=== PATIENT | female | born 1950 | race Caucasian/White ===

== ENCOUNTER → 2021-02-18 10:07 | Outpatient (CLI) | payer MEDICARE, SELFPAY ==
[2021-02-18 10:35] LABS: COVID19 -Nasal RAPID Negative (Negative)
== END ==
PROVIDERS: PCP Family Medicine; Visit Provider Physician Assistant
DX: Z20.822 Contact with and (suspected) exposure to COVID-19 (principal)
CPT/HCPCS: 87635

== ENCOUNTER 2021-02-20 14:19 | Observation (INO) | payer MEDICARE, SELFPAY ==
[2021-02-12 08:34] VITALS: BMI 26.2
[2021-02-19] VITALS (23 sets, daily range): BP systolic 120–180; BP diastolic 54–104; PULSE 83–104; RESP 12–17; TEMP 36.1–36.7; O2SAT 90–99; BMI 26.2
[2021-02-19] MEDS: LACTATED RINGERS 1,000 ML 42 ML IV ×2 (09:29→11:56)
--- NOTE | 2021-02-19 09:41 | PM.PREOP ---
Pre-operative Note COVID-19 COVID-19 status: Negative Result date/Date tested (Pos, Neg/Pending): 02/17/21 Interval Note History & Physical reviewed/Exam performed by Physician: Yes Changes to H&P: No
[2021-02-19] MEDS: CEFAZOLIN 2 GM/100 ML FROZ.PIGGY IV ×2 (09:48→18:30)
--- NOTE | 2021-02-19 10:36 | SUR.OPER ---
Prone on spine table, head in foam head support, padded chest and pelvic supports, gel pad at knees, lower legs supported by pillows; nipples, genitalia and toes free of pressure, arms secured on foam padded arm boards at <90 degrees abduction. Tape over blanket at thigh secured to table.
[2021-02-19] MEDS: BUPIVACAINE LIPOSOME 266 MG/20 ML VIAL INJ (10:43)
[2021-02-19] MEDS: BUPIVACAINE 0.25% W/ EPI (PF) 10 ML VIAL 30 ML INJ (10:44)
--- NOTE | 2021-02-19 13:10 | P.OP_ITS ---
Operative Date/Time/Diagnoses Date of procedure: 02/19/21 Time of procedure: 10:10 Pre-op diagnosis: 1. L5-S1 bilateral foramen stenosis with spondylosis 2. Hx of L5-S1 laminectomy with epidural scarring 3. Severe L5-S1 degenerative disc Post-op diagnosis: same Procedure & Clinicians Procedure: 1. L5-S1 Postero-lateral and posterior interbody fusion 2. L5-S1 interbody cage placement. 3. L5-S1 decompressive laminectomy with bilateral facetecomies 4. L5-S1 Posterior non-segmental instrumentation 5. Boon of bone marrow from iliac crest 6. Utilization of microsurgical technique and operating microscope Same procedure as scheduled: Yes Indications: Patient has been having chronic back pain and worsening lumbar radiculopathy. Patient failed multiple conservative management with worsening pain weakness and numbness in her lower extremity. Patient has been having difficulty performing activity of daily living. After discussing risks benefits of treatment options, patient elected proceed with surgery. Surgeon: Pavan Voss Handle Machine Operator: Martinez Singh Click Yes if Unassisted: No Anesthesia Type: General Operative Notes Closure Type: primary Specimen(s): none sent Prosthetic devices, grafts, tissues, transplants, or devices: Globus revolve screws, Rise cage Estimated Blood Loss (mL): 50 Blood products transfused: none Procedure in detail: Patient was seen in the preoperative area. Risks and benefits of the surgery was discussed with the patient. Informed consent was obtained from the patient and placed in the chart. Surgical site was marked. Patient was taken to the operative room. General anesthesia was administered. Prophylactic antibiotic was given to the patient less than 30 min before the incision was made. Patient was placed into a prone position on the Esdras table. Patient's back was then prepped and draped in the sterile fashion. Time- out was performed at this time. Using AP and lateral C-arm imaging the interval between L5-S1 was identified and marked on patient's back. A 2 inch incision 2 in from midline was made on the Right side first. The fascia was incised in line with skin incision. Globus MARS retractors was placed inside the incision and docked onto the L5 lamina. Using microsurgical technique and operating microscope, a L5 laminectomy and L5- S1 facetectomy was performed using a Kerrison rongeur. Patient was found have severe lateral recess and neural foramen stenosis which was fully decompressed after the laminectomy facetectomy. More than 75% of the facets were removed during the process of decompression rendering L5-S1 level grossly unstable and required a fusion procedure at the same time. Patient was found have significant amount of epidural scarring and adhesion to the dura from the Scarring. Special care was taken to excise the scar tissue from the epidural space for decompression purposes. The disc space at L5-S1 was identified. And a total diskectomy was performed at L5-S1 level. The endplates were decorticated using a rasp and shaver. The total diskectomy and decortication was performed at L5-S1 level in order to to accomplish a L5-S1 fusion. The local bone from the laminectomy and facetectomy was saved for local bone grafting. After the total diskectomy and decortication was completed, Trifecta bone graft material was combined with local bone that was harvested earlier. At this time, a separate skin is incision was made over the iliac crest. A Jamshidi needle was inserted into the iliac crest through a separate skin incision. 5 cc of bone marrow aspiration was obtained through the separate skin incision using a Jamshidi needle from the iliac crest. The bone marrow aspiration was combined with local bone and the Trifecta bone grafting material. The bone grafting material was placed into the L5-S1 interbody space along with a expandable cage. The cage was expanded to its maximum height using the torque limiting screwdriver. At this time a mirror image incision was made on the right side. The fascia was incised in line with the skin incision. Globus MARS retractor was inserted and docked onto the L5-S1 posterolateral gutter. Using the power drill, posterior-lateral decortication was performed at L5-S1 level until bleeding cortical bone was identified. The remaining bone grafting material was placed into the L5-S1 posterior lateral gutter he order to accomplish posterolateral fusion at the L5-S1 level. Using the double C-arm technique, pedicle screws were placed into the L5-S1 pedicles bilaterally. This was done by placing the Jamshidi needle into the pedicles, then placing the guidewires over the Jamshidi needle, and finally placing the cannulated screws over the guidewires bilaterally. After the pedicle screws were placed, 2 titanium rods was locked into the heads of the pedicle screws using locking caps and torque limiting screwdriver. After all the hardware was placed, and confirmed with AP and lateral C-arm imaging, the wound was then irrigated with sterile normal saline and packed with Ray-Eufemia gauze for 3 min to accomplish hemostasis. After the gauze was removed the deep fascia was closed with #1 Vicryl suture. The subcutaneous layer was closed with 2-0 Vicryl. The skin was closed with skin jenn. Patient tolerated the procedure well. There were no complications. Complications: none Post-operative Condition: stable Disposition: PACU Plan for aftercare: Admit to inpatient hospital
--- NOTE | 2021-02-19 13:11 | DI.RAD.S_ITS ---
PROCEDURE: XR LUMBAR SPINE 2-3V INDICATIONS: L5-S1 TLIF TECHNIQUE: 2 views of the lumbar spine were acquired. COMPARISON: None. FINDINGS: Spot fluoroscopic images demonstrating L5-S1 lumbar spine fixation with paraspinal coco and pedicle screws and interbody cage graft. Expected intraoperative alignment. Dictated by: Ian Gr M.D. on 02/19/2021 at 14:12 Approved by: Ian Gr M.D. on 02/19/2021 at 14:14
[2021-02-19] MEDS: ONDANSETRON 4 MG/2 ML INJ IV ×2 (13:17→19:19)
[2021-02-19] MEDS: fentaNYL 100 MCG/2 ML INJ IV ×5 (13:18→14:07)
[2021-02-19] MEDS: HYDROMORPHONE 2 MG INJ IV ×3 (13:37→13:56)
[2021-02-19] MEDS: METOCLOPRAMIDE 10 MG/2 ML INJ IV (13:44)
[2021-02-19] MEDS: PROCHLORPERAZINE 10 MG/2 ML VIAL 5 MG IV (14:19)
[2021-02-19] MEDS: SODIUM CHLORIDE 0.9% 1,000 ML 100 ML IV (15:00)
--- NOTE | 2021-02-19 15:32 | PC.NURSE ---
Rec'd report from [facility] in PACU. Pt arrived to floor at 1450, A&Ox4 and sleepy. VSS, O2 sat 95% on RA, BP 130/64, 103 HR, 14 RR, 97.1 temp. Reports nausea in PACU, has emesis bag and lavender scent packet. Gauze drsg on back CDI, small area of shadow drainage. Foot SCD's applied. Oriented to call box, bed alarm on.
--- NOTE | 2021-02-19 17:20 | PC.NURSE ---
Addendum entered by Ruby Edwards R.N. 02/19/21 20:21: Pt resting at intervals. Med @ 1900 for pain, had emesis 15 min. later. Med w/zofran w/good releif IVF continue as per orders. foot SCD in place. Call light w/in reach, bed alarm on for pt safety. Continue w/plan of care. Original Note: Pt resting quietly at this time. Denies discomfort when asked. SpO2 98% RA, lungs CTA Assisted to BSC w/o incidence. Dsg to surgical back CDI. NS infusing into right wrist @ 100cc/hr via pump w/o incidence. Call light w/in reach, bed alarm on for pt safety.
[2021-02-19] MEDS: OXYCODONE IR 5 MG TABLET 10 MG PO ×2 (19:02→23:37)
[2021-02-20] VITALS (7 sets, daily range): BP systolic 100–144; BP diastolic 46–78; PULSE 81–96; RESP 16–19; TEMP 36.6–37.6; O2SAT 93–96
[2021-02-20] MEDS: SODIUM CHLORIDE 0.9% 1,000 ML 100 ML IV (01:42)
[2021-02-20] MEDS: CEFAZOLIN 2 GM/100 ML FROZ.PIGGY IV (01:42)
[2021-02-20] MEDS: OXYCODONE IR 5 MG TABLET 10 MG PO ×5 (02:45→23:51)
--- NOTE | 2021-02-20 04:31 | PC.NURSE ---
Pt needs frequent and constant reminders of spinal precautions, and will not adhere on own. Pt able to make needs known and is alert and oriented. Pt educated by this RN on proper movements and precautions post-surgery.
[2021-02-20] MEDS: LEVOTHYROXINE 50 MCG TABLET PO (05:54)
[2021-02-20] MEDS: ACETAMINOPHEN 325 MG TABLET 650 MG PO ×3 (05:54→20:36)
--- NOTE | 2021-02-20 07:35 | PM.PN.1 ---
Subjective Subjective Date Patient Seen: 02/20/21 Time Patient Seen: 07:35 Interval history: Patient states she is doing well and is in minimal discomfort while resting in bed. Patient reports good sensation throughout the bilateral lower extremities. At this time the patient denies fever, chills, shortness of breath, chest pain, or urinary retention. Patient reports pain is worse when lying supine. Patient notes she is looking forward to working with Physical therapy later today. Exam Vital Signs (past 8 hours): - 02/20/21 00:00 02/20/21 05:00 Temperature 97.8 F 97.9 F Pulse Rate 90 92 H Respiratory Rate 16 18 Blood Pressure 103/54 L 130/51 L Pulse Oximetry 94 94 Oxygen Delivery Method Nasal Cannula Oxygen Flow Rate 3 Narrative Exam Narrative: 71-year-old female postop day 1 status post L5-S1 posterolateral and posterior interbody fusion. Patient is resting comfortably in bed, is in no acute distress, is alert and oriented x3. Skin is warm and dry, and the skin surrounding the incision site is free of erythema, warmth, induration, or discharge. Hip flexion performed bilaterally without difficulty or discomfort. Calves are soft and nontender, negative Homans sign. Ankle inversion, eversion, plantar flexion, dorsiflexion performed bilaterally without difficulty or discomfort. Capillary refill less than 2 seconds. No other signs of DVT appreciated. Const General: cooperative, healthy appearing and comfortable Resp Effort & Inspection: normal respiratory effort and able to speak in complete sentences Skin General: no rashes or lesions noted PFSH Medical History Anxiety Depression Diabetes (~2016) Hearing impaired HTN (hypertension) Hypothyroidism Sciatica Surgical History Hx of dilation and curettage Hx of lumbar discectomy (2017) Hx of tonsillectomy Hx of tubal ligation Social History household members: family Smoking Status: Former smoker alcohol intake: current Assessment & Plan Assessment & Plan narrative: Patient is doing well. Patient is to work with physical therapy on getting into and out of bed, ambulation, and getting to and from the restroom. Patient is to continue current pain control regimen as is currently managing the patient's pain effectively. Quality VTE Deep Vein Thrombosis/Pulmonary Embolism Present on Admission: No
[2021-02-20] MEDS: ONDANSETRON 4 MG/2 ML INJ IV (08:15)
--- NOTE | 2021-02-20 08:58 | CM.IDA ---
Addendum entered by GERARDO Quiroz 02/20/21 13:37: Therapy team recommending home w/assist and outpatient therapy. 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 Original Note: Initial DCP Assessment Note Pt is a 71 yo female, resident of [place], now POD#1 from spinal surgery w/ Dr Voss PCP: [facility] Payer: [employer] Reviewed chart, Therapy pending today. pt hopes for return home w/family to assist, she lives in the downstairs of a home shared w/her adult dtr Nelia. Nelia (daughter) P# [phone] Will follow closely, depending on recovery and recommendations from therapy team- will discuss home w/ HH and assist from family vs SNF if [employer] authorizes. GERARDO Quiroz
[2021-02-20] MEDS: DOCUSATE 100 MG CAPSULE PO ×2 (09:11→20:36)
[2021-02-20] MEDS: lisinopriL 5 MG TABLET PO (09:11)
[2021-02-20] MEDS: ESCITALOPRAM 10 MG TABLET 20 MG PO (09:11)
--- NOTE | 2021-02-20 10:02 | PT.IIE ---
Current Diagnoses Spinal stenosis, lumbar region without neurogenic claudication (02/19/21) Other specified postprocedural states (02/19/21) Surgery Performed Operation Date: 02/19/21 13:45 Actual Procedures p L5-S1 TLIF - Pavan Voss MD Surgical History (Last Reviewed 02/20/21 @ 07:37 by Martinez Singh PA-C) Hx of dilation and curettage Hx of lumbar discectomy (2017) Hx of tonsillectomy Hx of tubal ligation Medical History (Last Reviewed 02/20/21 @ 07:37 by Martinez Singh PA-C) Anxiety Depression Diabetes (~2015) Hearing impaired HTN (hypertension) Hypothyroidism Sciatica Physical Therapy Inpatient Evaluation/Re-Eval M1 PT/OT-IP Prior Functional Status Start: 02/20/21 12:27 Freq: NEEDED Status: Active Protocol: Document 02/20/21 10:02 AB (Rec: 02/20/21 12:40 AB [email or web address]) Medical Review Prior Functional Status Communication able to make needs known Mobility and Gait pt stated that she is independent with all mobilities and ambulation without AD but has been using a SPC for the passed 1-2 months for balance Social History Household Members family Living Arrangements House Number of Floors (Floors) Two Floors Number of Stairs To Enter/Railing? pt lives downstairs and daughter lives upstairs: has 10 steps+landing+10 steps R rail descending to get to her level Home Environment Standard Height Toilet,Walk in Shower Home Equipment Front Wheel Walker,Straight Cane,Shower Seat without Backrest,Hand Held Shower,Grab Bars In Shower M2 PT-IP Current Condition Start: 02/20/21 12:27 Freq: NEEDED Status: Active Protocol: Document 02/20/21 10:02 AB (Rec: 02/20/21 12:40 AB [email or web address]) Physical Therapy Current Condition Current Condition Evaluation Date 02/20/21 Treatment Diagnosis s/p L5S1 fusion/lami; difficulty in walking Onset Date 02/19/21 Precautions Lumbar Precautions Log Roll,No Twisting,Limit Bending,Lifting Restriction of 10 lbs,Gait Belt above Incisional Area Other Precautions falls M3 PT-IP Subjective Start: 02/20/21 12:27 Freq: NEEDED Status: Active Protocol: Document 02/20/21 10:02 AB (Rec: 02/20/21 12:40 [email or web address]) Subjective Physical Therapy Visit Type Type Initial Evaluation Visit Start Time 10:02 Visit Stop Time 10:35 Total Visit Minutes 33 Number of PIG CONVEYOR OPERATOR Visits 0 Physical Therapy Visit Comments Patient Comments pt is agreeable to do PT Therapy Pain Assessment Pain When Pain Assessed During Mobility Pain Present Pain Present Pain Reported Location Bilateral Leg Scale Used pain sclae not stated Pain Management Techniques Apply Cold,Distraction, Modification of Treatment,Re- positioning,Timing of Activity with Medications M4 PT-IP Mobility and Gait Start: 02/20/21 12:27 Freq: NEEDED Status: Active Protocol: Document 02/20/21 10:02 AB (Rec: 02/20/21 12:40 [email or web address]) PT-Bed Mobility Assessment Rolling Type of Rolling Log Rolling Level of Assist Standby Assistance Supine to Sit Supine to Sit Standby Assistance PT-Transfer Assessment Sit to and From Stand Sit to and from Stand Contact Guard Assistance Equipment Transfer Assistive Device Gait Belt,Front Wheeled Walker Orthotic/Prosthetic Devices or Brace: No Transfers Transfer Destination Chair,Toilet Transfer Technique ambulated using FWW Transfer Ability Level of Assist Standby Assistance,Contact Guard Assistance,Use of Upper Extremities Comments Mobility Comments educated on back precautions and log roll bed mobility. pt can be impulsive. completed log roll supine to sit SBA and cues. pt was able to sit on EOB SBA. completed sit to stand CGA and ambulated in room ~ 40 ft using FWW initial CGA but towards the end of ambulation was only needing SBA. pt agreed to sit up on chair. postioned on chair but afterwards, stated that she needs to use the toilet. completed sit to stand from the chair SBA and ambulated to the toilet using FWW SBA. completed sit to stand from the toilet SBA and ambulated back to the chair using fWW SBA. positioned on chair. call light and table placed within reach. chair alarm on. Gait Assessment Gait Gait Assistance Required: Standby Assistance,Contact Guard Assist Distance (Feet) 40 Able to Maintain Weight Bearing Status Yes During Gait Assistive Devices Assistive Device Gait Belt,Front Wheeled Walker Orthotic/Prosthetic Devices or Brace: No Gait Deviations General Gait Pattern Antalgic,Decreased Stride Length,Decreased Feet Clearance Factors Limiting Gait Function Factors Limiting Gait Function Decreased Activity Tolerance, Decreased Strength,Limited Range of Motion,Pain,Poor Balance,Poor Safety Awareness Comments Gait Comments pls refer to mobility section for details PT-Balance Assessment Sitting Balance and Reactions Static Sitting Balance Ability Good Dynamic Sitting Balance Ability Good Standing Balance and Reactions Static Standing Balance Ability Fair Dynamic Standing Balance Ability Fair Device Used FWW M5 PT-IP Objective Assessments Start: 02/20/21 12:27 Freq: NEEDED Status: Active Protocol: Document 02/20/21 10:02 AB (Rec: 02/20/21 12:40 AB [email or web address]) Orientation Orientation/Cognition Level of Alertness Alert Orientation Name,Place,Situation Language Function Ability No Deficits Noted Safety Awareness Decreased Safety Awareness Gross Range of Motion Lower Extremity ROM Assessment Within Functional Limits Strength Lower Extremity Strength Assessment Within Functional Limits Muscle Tone Muscle Tone WNL Yes M6 PT-IP Treatment Start: 02/20/21 12:27 Freq: NEEDED Status: Active Protocol: Document 02/20/21 10:02 AB (Rec: 02/20/21 12:40 AB [email or web address]) Physical Therapy Treatment Education Education Provided Precautions,Weight Bearing Status,Post-Op Packet,Safety M7 PT-IP Assessment and Plan Start: 02/20/21 12:27 Freq: NEEDED Status: Active Protocol: Document 02/20/21 10:02 AB (Rec: 02/20/21 12:40 AB [email or web address]) PT Summary Assessment and Plan Potential Rehabilitation Potential Good Status of Condition at Evaluation Stable Summary Impairments Pain,ROM,Strength,Balance, Coordination,Sensation,Tone, Cognition,Bed Mobility, Transfers,Gait,Activity Tolerance Assessment Summary pt requiring SBA to CGA with mobility using FWW but with decrease safety awareness and requires cues for technique, precautions. pt plans to go home and family can assist her as needed. will complete stair climbing training prior to d/c Goals Bed Mobility Goal Independent Transfer Goal Independent,Front Wheeled Walker Gait Goal Independent,Front Wheel Walker Gait Distance 200 Other Goals improve ambulation using SPC/ without AD 250 ft SBA up/down 20 steps L rail ascending SBA Days to Meet Goals 5 Frequency of Treatment Frequency Of Treatment Twice a Day Treatment Plan Physical Therapy Treatment Plan Bed Mobility Training,Transfer Training,Gait Training, Therapeutic Exercise,Balance Retraining,Post Op Education, Discharge Planning,Hot or Cold Pack,Neuromuscular Re-ed, Coordination Retraining,Manual Therapy Precautions Lumbar Precautions Log Roll,No Twisting,Limit Bending,Lifting Restriction of 10 lbs,Gait Belt above Incisional Area Recommendations To Nursing Amount of Assist Needed 1 Person Assist Discharge Recommendations PT Discharge Recommendations Home with Assistance Transportation Needs at Discharge Private Vehicle
--- NOTE | 2021-02-20 11:15 | PC.NURSE ---
This morning, pt up to BSC w/2PA. When she reported feeling nauseous, sweaty and had hot and then cold spells, also reported feeling shaky. Glucose checked: 120. VSS: 144/78 BP, 96 HR. Zofran administered. Symptoms resolved shortly after getting back to bed. Bed alarm on, call light in reach.
--- NOTE | 2021-02-20 11:35 | PC.NURSE ---
Pt requesting only half of ordered oxycodone due to concern with nausea. Administered 5mg of oxycodone, rather than the ordered dose of 10mg.
--- NOTE | 2021-02-20 14:54 | PT.IPTN ---
Current Diagnoses Spinal stenosis, lumbar region without neurogenic claudication (02/20/21) Other specified postprocedural states (02/20/21) Surgery Performed Operation Date: 02/19/21 13:45 Actual Procedures p L5-S1 TLIF - Pavan Voss MD Physical Therapy Treatment Note M2 PT-IP Current Condition Start: 02/20/21 12:27 Freq: NEEDED Status: Active Protocol: Document 02/20/21 10:02 AB (Rec: 02/20/21 12:40 AB [email or web address]) Physical Therapy Current Condition Current Condition Evaluation Date 02/20/21 Treatment Diagnosis s/p L5S1 fusion/lami; difficulty in walking Onset Date 02/19/21 Precautions Lumbar Precautions Log Roll,No Twisting,Limit Bending,Lifting Restriction of 10 lbs,Gait Belt above Incisional Area Other Precautions falls M3 PT-IP Subjective Start: 02/20/21 12:27 Freq: NEEDED Status: Active Protocol: Document 02/20/21 14:31 CLB (Rec: 02/20/21 15:22 CLB [id number]) Subjective Physical Therapy Visit Type Type Treatment Note Visit Start Time 14:31 Visit Stop Time 14:54 Total Visit Minutes 23 Number of RAILROAD CONSTRUCTION DIRECTOR Visits 1 Physical Therapy Visit Comments Patient Comments pt is agreeable to do PT Therapy Pain Assessment Pain When Pain Assessed During Mobility Pain Present Pain Present Pain Reported Location Back Intensity 6 Scale Used Numeric (0 - 10) Pain Behaviors Facial Grimacing Pain Management Techniques Modification of Treatment, Timing of Activity with Medications M4 PT-IP Mobility and Gait Start: 02/20/21 12:27 Freq: NEEDED Status: Active Protocol: Document 02/20/21 14:31 CLB (Rec: 02/20/21 15:22 CLB [id number]) PT-Bed Mobility Assessment Rolling Type of Rolling Log Rolling Level of Assist Standby Assistance Supine to Sit Supine to Sit Standby Assistance Sit to Supine Sit to Supine Standby Assistance PT-Transfer Assessment Sit to and From Stand Sit to and from Stand Standby Assistance,Contact Guard Assistance,Use of Upper Extremities Equipment Transfer Assistive Device Gait Belt,Front Wheeled Walker Orthotic/Prosthetic Devices or Brace: No Transfers Transfer Destination Bed,Chair Transfer Ability Level of Assist Standby Assistance,Contact Guard Assistance,Use of Upper Extremities Comments Mobility Comments Pt unable to recall back precations. Pt able to LR and get to EOB SBA. Pt stood to ambulate with cane but unable to safely use SPC, Pt ambulates with FWW with increased steadiness and requires cues for walker management, staying inside walker and posture with forward gaze for safety. Pt is able to sit and stand from chair SBA. Pt performed seated knee ext/flx, quad sets and AP's. Pt left in bed in sidelying with alarm on and all needs within reach. Gait Assessment Gait Gait Assistance Required: Standby Assistance,Contact Guard Assist Distance (Feet) 80 Able to Maintain Weight Bearing Status Yes During Gait Assistive Devices Assistive Device None,Gait Belt,Straight Cane, Front Wheeled Walker Orthotic/Prosthetic Devices or Brace: No Gait Deviations General Gait Pattern Antalgic,Decreased Stride Length,Decreased Feet Clearance Factors Limiting Gait Function Factors Limiting Gait Function Decreased Activity Tolerance, Decreased Strength,Limited Range of Motion,Pain,Poor Balance,Poor Safety Awareness Comments Gait Comments Pt is steadier with FWW, pt requires cues for safety with FWW during ambulation as pt tends to pick up attendant walker during turns. Pt fatigues and c/o increased pain after ~40ft. M5 PT-IP Objective Assessments Start: 02/20/21 12:27 Freq: NEEDED Status: Active Protocol: Document 02/20/21 10:02 AB (Rec: 02/20/21 12:40 AB [id number]) Orientation Orientation/Cognition Level of Alertness Alert Orientation Name,Place,Situation Language Function Ability No Deficits Noted Safety Awareness Decreased Safety Awareness Gross Range of Motion Lower Extremity ROM Assessment Within Functional Limits Strength Lower Extremity Strength Assessment Within Functional Limits Muscle Tone Muscle Tone WNL Yes M6 PT-IP Treatment Start: 02/20/21 12:27 Freq: NEEDED Status: Active Protocol: Document 02/20/21 14:31 CLB (Rec: 02/20/21 15:22 CLB [id number]) Physical Therapy Treatment Exercises Exercises Ankle Pumps,Quad Sets,Seated Knee Flexion/Extension Education Education Provided Precautions,Weight Bearing Status,Post-Op Packet,Safety M7 PT-IP Assessment and Plan Start: 02/20/21 12:27 Freq: NEEDED Status: Active Protocol: Document 02/20/21 14:31 CLB (Rec: 02/20/21 15:22 CLB [id number]) PT Summary Assessment and Plan Potential Rehabilitation Potential Good Status of Condition at Evaluation Stable Summary Impairments Pain,ROM,Strength,Balance, Coordination,Sensation,Tone, Cognition,Bed Mobility, Transfers,Gait,Activity Tolerance Progress Towards Goals Progressing Toward Goals Assessment Summary Pt requiring SBA during ambulation with FWW and pt continues to require cues for safety as pt is impulsive and has poor carryover. Pt will require stair training before d/c with family to assist. Goals Bed Mobility Goal Independent Transfer Goal Independent,Front Wheeled Walker Gait Goal Independent,Front Wheel Walker Gait Distance 200 Other Goals improve ambulation using SPC/ without AD 250 ft SBA up/down 20 steps L rail ascending SBA Days to Meet Goals 5 Frequency of Treatment Frequency Of Treatment Twice a Day Treatment Plan Physical Therapy Treatment Plan Bed Mobility Training,Transfer Training,Gait Training, Therapeutic Exercise,Balance Retraining,Post Op Education, Discharge Planning,Hot or Cold Pack,Neuromuscular Re-ed, Coordination Retraining,Manual Therapy Other Recommendations and Next Treatment Gait, stair training Focus Precautions Lumbar Precautions Log Roll,No Twisting,Limit Bending,Lifting Restriction of 10 lbs,Gait Belt above Incisional Area Recommendations To Nursing Amount of Assist Needed 1 Person Assist Discharge Recommendations PT Discharge Recommendations Home with Assistance Transportation Needs at Discharge Private Vehicle
--- NOTE | 2021-02-20 16:17 | OT.IP.EVAL ---
Current Diagnoses Spinal stenosis, lumbar region without neurogenic claudication (02/20/21) Other specified postprocedural states (02/20/21) Surgery Performed Operation Date: 02/19/21 13:45 Actual Procedures p L5-S1 TLIF - Pavan Voss MD Past Medical History (Last Reviewed 02/20/21 @ 07:37 by Martinez Singh PA-C) Anxiety Depression Diabetes (~2016) Hearing impaired HTN (hypertension) Hypothyroidism Sciatica Surgical History (Last Reviewed 02/20/21 @ 07:37 by Martinez Singh PA-C) Hx of dilation and curettage Hx of lumbar discectomy (2017) Hx of tonsillectomy Hx of tubal ligation Occupational Therapy Inpatient Evaluation/Re-Eval M1 PT/OT-IP Prior Functional Status Start: 02/20/21 16:20 Freq: NEEDED Status: Active Protocol: Document 02/20/21 16:20 [facility] (Rec: 02/20/21 16:40 [facility] [id number]) Medical Review Prior Functional Status Communication able to make needs known Mobility and Gait pt stated that she is independent with all mobilities and ambulation without AD but has been using a SPC for the passed 1-2 months for balance Activities of Daily Living and IADL's Pt states was completely independent with all ADl's, meds, and money management needs. Pt would eat meals upstairs with her family. Social History Household Members family Living Arrangements House Number of Floors (Floors) Two Floors Number of Stairs To Enter/Railing? pt lives downstairs and daughter lives upstairs: has 8 steps+landing+8 steps R rail descending to get to her level Home Environment Standard Height Toilet,Walk in Shower Home Equipment Four Wheel Walker,Straight Cane,Shower Seat without Backrest,Hand Held Shower,Grab Bars In Shower M2 OT-IP Current Condition Start: 02/20/21 16:20 Freq: Status: Active Protocol: Document 02/20/21 16:20 [facility] (Rec: 02/20/21 16:40 [facility] [id number]) Occupational Therapy Current Condition Current Condition Evaluation Date 02/20/21 Treatment Diagnosis S/p L5-S1 fusion/lami Post Operative Precautions Lumbar Precautions Log Roll,No Twisting,Limit Bending,Lifting Restriction of 10 lbs,Gait Belt above Incisional Area M3 OT- IP Subjective and Pain Start: 02/20/21 16:20 Freq: Status: Active Protocol: Document 02/20/21 16:20 [facility] (Rec: 02/20/21 16:40 [facility] [id number]) OT- Subjective Occupational Therapy Visit Type Type Initial Evaluation Visit Start Time 15:58 Visit Stop Time 16:17 Total Visit Minutes 19 Occupational Therapy Visit Comments Patient Comments Pt agreed to get up as having to use the bathroom. Patient/Caregiver Goals To go home. OT Pain Assessment Pain When Pain Assessed During Mobility Pain Present Pain Present Pain Reported Location Back Intensity 3 Scale Used Numeric (0 - 10) M4 OT- IP ADL's Start: 02/20/21 16:20 Freq: Status: Active Protocol: Document 02/20/21 16:20 [facility] (Rec: 02/20/21 16:40 [facility] [id number]) OT [id number] Comments OT Self-Feeding Comments NOt at meal time. OT ADL-Grooming General Evaluation Grooming Ability Standby Assistance Areas Needing Assistance Retrieving/Set-up of Grooming Items OT ADL-Oral Care General Eval Oral Care Ability Standby Assistance Areas of Assistance Retrieving/Set-Up of Items Comments Oral Care Comments Educated best to spit into a cup or hinge at her hips to spit into the sink in order to best follow her back precautions. OT ADL-Dressing General Eval Lower Body Dressing Ability Maximum Assistance Comments OT Dressing Comments Assist with socks, educated on LB dressing equipment to be able to assist with her needs as pt does not want her son in law to assist with any dressing or hygiene needs. OT ADL-Toileting General Evaluation Toileting Ability Standby Assistance Comments OT Toileting Comments Pt able to have good follow through of back precautions to be able to wipe for hygiene needs. Pt agreed to wear pads at [facility] and have a cell phone on her to call for assist as needed. OT ADL-Bathing Comments OT Bathing Comments Pt states wanting to wait to shower tomorrow. M5 OT- IP IADL's Start: 02/20/21 16:20 Freq: Status: Active Protocol: Document 02/20/21 16:20 [facility] (Rec: 02/20/21 16:40 [facility] [id number]) OT-Instrumental Activities of Daily Living Home Safety Awareness Awareness of Need for Assistance at Home Good Awareness Medication Management Medication Management No Deficits Identified Money Management Money Management No Deficits Identified Meal Preparation Meal Preparation Caregiver Provides Assist Cleaner Signs Cleaner Signs Caregiver Provides Assist M6 OT- IP Functional Cognition Start: 02/20/21 16:20 Freq: Status: Active Protocol: Document 02/20/21 16:20 [facility] (Rec: 02/20/21 16:40 [facility] [id number]) Cognitive Factors Limiting Selfcare Function Cognitive Ability Level of Alertness Alert Patient Orientation Name,Age,Birthday,Month,Date, Year,Day of Week,Place, Situation Attention Span Ability Capable of Focused Attention, Capable of Sustained Attention Ability to Follow Commands Able to Follow Multi-Step Commands Safety Awareness Decreased Recall of Precautions,Decreased Ability to Apply Precautions Problem Solving Ability Needs Assist to Identify Solutions Cognitive Comments Cognitive Assessment Comments Pt is a little impulsive and needing cues to slow down. Pt unable to recall all back precautions. Pt needing reminders to do log rolling as pt tends to want to sit up into long sitting. VC not to pecan picker the FWW. OT- Vision and Hearing OT- Hearing Assessment OT- Hearing Assessment WFL OT- Vision Assessment Visual Acuity Glasses All The Time M7 OT- IP Mobility and Balance Start: 02/20/21 16:20 Freq: Status: Active Protocol: Document 02/20/21 16:20 [facility] (Rec: 02/20/21 16:40 [facility] [id number]) OT- Bed Mobility Assessment Rolling Type of Rolling Roll to Left Level of Assistance Standby Assistance Supine to Sit Supine to Sit Assist Standby Assistance OT-Transfer Assessment Sit to and From Stand Sit to and from Stand Standby Assistance Transfers Transfer Ability Standby Assistance,Contact Guard Assistance Technique Transfer Destination Bed Transfer Technique Stand Step Pivot Devices Transfer Assistive Devices Gait Belt,Front Wheeled Walker Comments Mobility Comments CGA to close sba with FWW. Pt needing cues to keep the FWW out in front of her more as getting too close to it. Pt clarified to say has a 4ww at home versus fww. OT- Gait Assessment Comments Gait Ability Comments CGA/SBA with FWW. OT- Balance Assessment Sitting Balance and Reactions Static Sitting Balance Ability Normal Dynamic Sitting Balance Ability Good Standing Balance and Reactions Static Standing Balance Ability Good M8 OT- IP Objective Assessments Start: 02/20/21 16:20 Freq: Status: Active Protocol: Document 02/20/21 16:20 [facility] (Rec: 02/20/21 16:40 [facility] [id number]) OT Gross Range of Motion Upper Extremity Range of Motion Assessment Within Functional Limits OT Strength Upper Extremity Strength Assessment Within Functional Limits OT-Muscle Tone Assessment Muscle Tone WNL Yes M9 OT- IP Assessment and Plan Start: 02/20/21 16:20 Freq: Status: Active Protocol: Document 02/20/21 16:20 [facility] (Rec: 02/20/21 16:40 [facility] [id number]) OT Summary Assessment and Plan Potential Rehabilitation Potential Excellent Analytic Complexity at Evaluation Low Summary OT Impairments Pain,Functional Cognition, Functional Mobility,Dressing, Bathing,Shower Transfers, Activity Tolerance Progress Towards Goals Progressing Toward Goals Assessment Summary Pt low complexity and main barriers are pain, step, a bit impulsive and needing to slow down and ability to recall and incorporate her back precautions. Pt has a supportive family to be able to assist with all her needs at home. Therefore when stable , pt to go home. Goals Grooming Goal Independent Dressing Goal Independent Toileting Goal Independent Bathing Goal Standby Assistance Toilet Transfer Goal Independent Shower Transfer Goal Independent Days to Meet Goals 3 Frequency of Treatment Frequency Of Treatment Once a Day Treatment Plan OT Treatment Plan ADL Training,Functional Cognition Training,Functional Mobility,Patient/Family Education,Discharge Planning Discharge Recommendations OT Discharge Recommendations Home with Assistance Home Equipment Needs [employer] worker Transportation Needs at Discharge Private Vehicle
[2021-02-20] MEDS: SENNOSIDES 8.6 MG TABLET 17.2 MG PO (20:36)
[2021-02-20] MEDS: SODIUM CHLORIDE 0.9% FLUSH 10 ML IV (20:41)
[2021-02-21] MEDS: ACETAMINOPHEN 325 MG TABLET 650 MG PO ×2 (03:51→10:22)
[2021-02-21] MEDS: OXYCODONE IR 5 MG TABLET 10 MG PO ×3 (03:51→12:20)
[2021-02-21 03:59] VITALS: BP 117/71; PULSE 91; RESP 18; TEMP 38.2; O2SAT 95
[2021-02-21 05:00] VITALS: TEMP 37.1
[2021-02-21] MEDS: LEVOTHYROXINE 50 MCG TABLET PO (05:50)
--- NOTE | 2021-02-21 08:04 | P.DS_ITS ---
History of Present Illness History of Present Illness Date Patient Seen: 02/21/21 Time Patient Seen: 08:04 Chief complaint: Translaminar Interbody Fusion/Laminotomy *OPB* Narrative: Pain is [id number]. Denies fever chills. No nausea vomiting. Patient does have assistance at home. Discharge Providers Provider Date of admission: 02/20/21 14:19 Discharge Date: 02/21/21 Primary care physician: Luisito Adams MD Consults: 02/19/21 15:07 Consult to Occupational Therapy Evaluate & Treat Comment: Physician Instructions: Evaluate and treat Consult to Physical Therapy Evaluate & Treat Comment: Physician Instructions: Evaluate and Treat Discharge provider: Zander Palacios PA-C Summary Hospital Course Discharge Diagnosis: 1. L5-S1 bilateral foramen stenosis with spondylosis 2. Hx of L5-S1 laminectomy with epidural scarring 3. Severe L5-S1 degenerative disc Hospital Course: 1. L5-S1 Postero-lateral and posterior interbody fusion 2. L5-S1 interbody cage placement. 3. L5-S1 decompressive laminectomy with bilateral facetecomies 4. L5-S1 Posterior non-segmental instrumentation 5. [facility] of bone marrow from iliac crest 6. Utilization of microsurgical technique and operating microscope Same procedure as scheduled: Yes Indications: Patient has been having chronic back pain and worsening lumbar radiculopathy. Patient failed multiple conservative management with worsening pain weakness and numbness in her lower extremity. Patient has been having difficulty performing activity of daily living. After discussing risks benefits of treatment options, patient elected proceed with surgery. Surgeon: Pavan Voss Civil Service Clerk: Martinez Singh Click Yes if Unassisted: No Anesthesia Type: General Operative Notes Closure Type: primary Specimen(s): none sent Prosthetic devices, grafts, tissues, transplants, or devices: Globus revolve screws, Rise cage Estimated Blood Loss (mL): 50 Blood products transfused: none Status at Discharge Cognitive/behavioral status at discharge: at baseline, oriented Functional status at discharge: uses cane/walker Overall status at discharge: patient is progressing back to baseline Time Spent with Patient Time spent: Less than 30 minutes Exam Vital Signs (past 8 hours): - 02/21/21 03:59 02/21/21 05:00 Temperature 100.7 F H 98.8 F Pulse Rate 91 H Respiratory Rate 18 Blood Pressure 117/71 Pulse Oximetry 95 Oxygen Delivery Method Room Air Oxygen Flow Rate 3 Narrative Exam Narrative: Pleasant female resting comfortably in bed in no apparent distress. Skin she had a lying on dressing. Neurovascular status is intact to the bilateral lower extremities. [facility] Medical History Anxiety Depression Diabetes (~2016) Hearing impaired HTN (hypertension) Hypothyroidism Sciatica Surgical History Hx of dilation and curettage Hx of lumbar discectomy (2017) Hx of tonsillectomy Hx of tubal ligation Social History household members: family Smoking Status: Former smoker alcohol intake: current Discharge Assessment & Plan Assessment and Plan Assessment: Patient progressing as expected. Plan of Treatment: Discharge home today in stable condition. Discharge Plan Discharge Plan Patient Disposition: Home Discharge orders & Medications Prescriptions: New acetaminophen 325 mg Tablet 650 mg PO Q6HR PRN (Reason: Pain, Mild (1-3)) Qty: 60 RF: 0 docusate sodium [DOK] 100 mg Capsule 100 mg PO BID Qty: 20 RF: 0 oxycodone 5 mg Tablet 10 mg PO Q3HR PRN (Reason: Pain, Severe (7-10)) Qty: 40 RF: 0 hydroxyzine pamoate 25 mg Capsule 25 mg PO Q4HR PRN (Reason: Nausea And Vomiting) Qty: 30 RF: 0 Continued meloxicam 15 mg Tablet 15 mg PO DAILY RF: 0 levothyroxine 50 mcg Tablet 50 mcg PO DAILY RF: 0 lisinopril 5 mg Tablet 5 mg PO DAILY RF: 0 loratadine 10 mg Tablet 10 mg PO DAILY PRN (Reason: Seasonal allergies) RF: 0 escitalopram oxalate 20 mg Tablet 20 mg PO DAILY RF: 0 Discontinued acetaminophen [Tylenol Arthritis] 650 mg Tablet Extended Release 1,300 mg PO Q12H RF: 0 Follow up/Referrals: Luisito Adams MD [Primary Care Provider] - Pavan Voss MD [Physician] - (Two weeks) Diet/Activity/Treatments Diet: Diet as Tolerated Activity: Limit bending, twisting, lifting Skin/Wound/Dressing Care Report to your healthcare provider any signs of infection, such as:: chills, fever, increased pain, unusual drainage and unusual redness Dressing: Keep clean and dry Visit Report/Discharge Packet Instructions: DI for Constipation, How to Prevent Falls, DI for Prescription Opioid Use, DI for Transforaminal Lumbar Interbody Fusion Stand Alone Forms: Surgery Discharge Discharge Data Primary Care Provider: Luisito Adams Attending Provider: Pavan Voss VTE Deep Vein Thrombosis/Pulmonary Embolism Present on Admission: No
[2021-02-21] MEDS: DOCUSATE 100 MG CAPSULE PO (08:29)
[2021-02-21] MEDS: ESCITALOPRAM 10 MG TABLET 20 MG PO (08:29)
--- NOTE | 2021-02-21 09:19 | PT.IPTN ---
Current Diagnoses Spinal stenosis, lumbar region without neurogenic claudication (02/20/21) Other specified postprocedural states (02/20/21) Surgery Performed Operation Date: 02/19/21 13:45 Actual Procedures p L5-S1 TLIF - Pavan Voss MD Physical Therapy Treatment Note M2 PT-IP Current Condition Start: 02/20/21 12:27 Freq: NEEDED Status: Active Protocol: Document 02/20/21 10:02 AB (Rec: 02/20/21 12:40 AB [id number]) Physical Therapy Current Condition Current Condition Evaluation Date 02/20/21 Treatment Diagnosis s/p L5S1 fusion/lami; difficulty in walking Onset Date 02/19/21 Precautions Lumbar Precautions Log Roll,No Twisting,Limit Bending,Lifting Restriction of 10 lbs,Gait Belt above Incisional Area Other Precautions falls M3 PT-IP Subjective Start: 02/20/21 12:27 Freq: NEEDED Status: Active Protocol: Document 02/21/21 08:56 CLB (Rec: 02/21/21 10:52 CLB [id number]) Subjective Physical Therapy Visit Type Type Treatment Note Visit Start Time 08:56 Visit Stop Time 09:19 Total Visit Minutes 23 Number of TUBER HELPER Visits 2 Physical Therapy Visit Comments Patient Comments pt is agreeable to do PT Therapy Pain Assessment Pain When Pain Assessed During Mobility Pain Present Pain Present Pain Reported Location Back Scale Used did not state, improved with ambulation Pain Behaviors Facial Grimacing Pain Management Techniques Modification of Treatment, Timing of Activity with Medications M4 PT-IP Mobility and Gait Start: 02/20/21 12:27 Freq: NEEDED Status: Active Protocol: Document 02/21/21 08:56 CLB (Rec: 02/21/21 10:52 CLB [id number]) PT-Bed Mobility Assessment Rolling Type of Rolling Log Rolling Level of Assist Standby Assistance Supine to Sit Supine to Sit Standby Assistance PT-Transfer Assessment Sit to and From Stand Sit to and from Stand Standby Assistance Equipment Transfer Assistive Device Gait Belt,Front Wheeled Walker Orthotic/Prosthetic Devices or Brace: No Transfers Transfer Destination Chair,Toilet Transfer Technique ambulated using FWW Transfer Ability Level of Assist Standby Assistance Comments Mobility Comments Pt required cues to use wall rail during sit<>stand. Pt required cues to put walker against counter and step inside frame when at counter to wash hands and brush teeth. Pt ambulate to stairs climbing stairs CGA-SBA. Pt left in reclined chair with all needs within reach and alarm on. Informed RN of pt mobility. Gait Assessment Gait Gait Assistance Required: Standby Assistance Distance (Feet) 250 Able to Maintain Weight Bearing Status Yes During Gait Assistive Devices Assistive Device Gait Belt,Front Wheeled Walker Orthotic/Prosthetic Devices or Brace: No Gait Deviations General Gait Pattern Antalgic,Decreased Stride Length,Decreased Feet Clearance Factors Limiting Gait Function Factors Limiting Gait Function Decreased Activity Tolerance, Decreased Strength,Limited Range of Motion,Pain,Poor Balance,Poor Safety Awareness Comments Gait Comments Pt with improved walker management and carryover. Stair Climbing Assessment Evaluation Level of Assist On Stairs Standby Assistance,Contact Guard Assistance Devices Stair Climbing Assistive Devices Left Railing,Right Railing Technique/Endurance Stair Climbing Direction Ascend and Descend Stair Climbing Technique Step Over Step Number of Steps Climbed 3 Stair Climbing Set # Repetitions (reps) 3 Comments Stair Climbing Comments Pt climbed first set of three steps with CGA then required SBA for two additional sets. M5 PT-IP Objective Assessments Start: 02/20/21 12:27 Freq: NEEDED Status: Active Protocol: Document 02/20/21 10:02 AB (Rec: 02/20/21 12:40 AB [id number]) Orientation Orientation/Cognition Level of Alertness Alert Orientation Name,Place,Situation Language Function Ability No Deficits Noted Safety Awareness Decreased Safety Awareness Gross Range of Motion Lower Extremity ROM Assessment Within Functional Limits Strength Lower Extremity Strength Assessment Within Functional Limits Muscle Tone Muscle Tone WNL Yes M6 PT-IP Treatment Start: 02/20/21 12:27 Freq: NEEDED Status: Active Protocol: Document 02/21/21 08:56 CLB (Rec: 02/21/21 10:52 CLB [id number]) Physical Therapy Treatment Exercises Exercises Ankle Pumps,Quad Sets,Seated Knee Flexion/Extension Education Education Provided Precautions,Safety M7 PT-IP Assessment and Plan Start: 02/20/21 12:27 Freq: NEEDED Status: Active Protocol: Document 02/21/21 08:56 CLB (Rec: 02/21/21 10:52 CLB [id number]) PT Summary Assessment and Plan Potential Rehabilitation Potential Good Status of Condition at Evaluation Stable Summary Impairments Pain,ROM,Strength,Balance, Coordination,Sensation,Tone, Cognition,Bed Mobility, Transfers,Gait,Activity Tolerance Progress Towards Goals Progressing Toward Goals Assessment Summary Pt increased gait distance to ~250ft w/FWW/SBA with improved safety with walker use. Pt able to climb stairs SBA with step over gait. Pt plans to d/ c home with family to assist. Goals Bed Mobility Goal Independent Transfer Goal Independent,Front Wheeled Walker Gait Goal Independent,Front Wheel Walker Gait Distance 200 Other Goals improve ambulation using SPC/ without AD 250 ft SBA up/down 20 steps L rail ascending SBA Days to Meet Goals 5 Frequency of Treatment Frequency Of Treatment Twice a Day Treatment Plan Physical Therapy Treatment Plan Bed Mobility Training,Transfer Training,Gait Training, Therapeutic Exercise,Balance Retraining,Post Op Education, Discharge Planning,Hot or Cold Pack,Neuromuscular Re-ed, Coordination Retraining,Manual Therapy Precautions Lumbar Precautions Log Roll,No Twisting,Limit Bending,Lifting Restriction of 10 lbs,Gait Belt above Incisional Area Recommendations To Nursing Amount of Assist Needed 1 Person Assist Discharge Recommendations PT Discharge Recommendations Home with Assistance Transportation Needs at Discharge Private Vehicle
[2021-02-21 09:28] VITALS: BP 120/55; PULSE 83; RESP 18; TEMP 36.6; O2SAT 94
--- NOTE | 2021-02-21 13:00 | OT.IP.TRT ---
Current Diagnoses Spinal stenosis, lumbar region without neurogenic claudication (02/20/21) Other specified postprocedural states (02/20/21) Surgery Performed Operation Date: 02/19/21 13:45 Actual Procedures p L5-S1 TLIF - Pavan Voss MD Occupational Therapy Treatment Note M2 OT-IP Current Condition Start: 02/20/21 16:20 Freq: Status: Active Protocol: Document 02/20/21 16:20 [facility] (Rec: 02/20/21 16:40 [facility] [id number]) Occupational Therapy Current Condition Current Condition Evaluation Date 02/20/21 Treatment Diagnosis S/p L5-S1 fusion/lami Post Operative Precautions Lumbar Precautions Log Roll,No Twisting,Limit Bending,Lifting Restriction of 10 lbs,Gait Belt above Incisional Area M3 OT- IP Subjective and Pain Start: 02/20/21 16:20 Freq: Status: Active Protocol: Document 02/21/21 13:01 [facility] (Rec: 02/21/21 13:17 [facility] [id number]) OT- Subjective Occupational Therapy Visit Type Type Treatment Note Visit Start Time 10:05 Visit Stop Time 13:00 Total Visit Minutes 68 Notes Pt seen for split session, 2nd part to talk to family regarding pt's needs. 1005- 1050 and [id number]. Occupational Therapy Visit Comments Patient Comments Pt wanting to shower. Patient/Caregiver Goals TO go home. OT Pain Assessment Pain When Pain Assessed At Rest Pain Present Pain Present Denied Pain M4 OT- IP ADL's Start: 02/20/21 16:20 Freq: Status: Active Protocol: Document 02/21/21 13:01 [facility] (Rec: 02/21/21 13:17 [facility] [id number]) OT ADL-Grooming General Evaluation Grooming Ability Standby Assistance Areas Needing Assistance Retrieving/Set-up of Grooming Items OT ADL-Dressing General Eval Lower Body Dressing Ability Contact Guard Assistance Comments OT Dressing Comments Pt able to use sas programmer remote to assist for LB dressing needs. CGA to stand while pulling up brief. OT ADL-Toileting General Evaluation Toileting Ability Standby Assistance OT ADL-Bathing Bathing Type Bathing Type Shower General Evaluation Bathing Ability Minimal Assistance Comments OT Bathing Comments Pt state for most of showering needs, CGA while standing for pericare needs. M5 OT- IP IADL's Start: 02/20/21 16:20 Freq: Status: Active Protocol: Document 02/20/21 16:20 [facility] (Rec: 02/20/21 16:40 [facility] [id number]) OT-Instrumental Activities of Daily Living Home Safety Awareness Awareness of Need for Assistance at Home Good Awareness Medication Management Medication Management No Deficits Identified Money Management Money Management No Deficits Identified Meal Preparation Meal Preparation Caregiver Provides Assist Carbon Sequestration Plant Operator Carbon Sequestration Plant Operator Caregiver Provides Assist M6 OT- IP Functional Cognition Start: 02/20/21 16:20 Freq: Status: Active Protocol: Document 02/21/21 13:01 [facility] (Rec: 02/21/21 13:17 [facility] [id number]) Cognitive Factors Limiting Selfcare Function Cognitive Ability Level of Alertness Alert Patient Orientation Name,Age,Birthday,Month,Date, Year,Day of Week,Place, Situation Attention Span Ability Capable of Focused Attention, Capable of Sustained Attention Ability to Follow Commands Able to Follow Multi-Step Commands Safety Awareness Decreased Recall of Precautions,Decreased Ability to Apply Precautions Cognitive Comments Cognitive Assessment Comments Pt very impulsive today and not remembering to do her log rolling and needing cues to stop and think of her back precautions before moving. M7 OT- IP Mobility and Balance Start: 02/20/21 16:20 Freq: Status: Active Protocol: Document 02/21/21 13:01 [facility] (Rec: 02/21/21 13:17 [facility] [id number]) OT- Bed Mobility Assessment Rolling Type of Rolling Roll to Left Level of Assistance Standby Assistance Supine to Sit Supine to Sit Assist Standby Assistance OT-Transfer Assessment Sit to and From Stand Sit to and from Stand Standby Assistance Transfers Transfer Ability Standby Assistance,Contact Guard Assistance Technique Transfer Destination Bed,Chair,Shower Stall,Toilet Transfer Technique Stand Step Pivot Devices Transfer Assistive Devices Gait Belt,Front Wheeled Walker Comments Mobility Comments Pt tends to cloth picker the FWW while walking and was able to walk some without the device with occasional use of counter for balance. Pt at this time would be much safer with her 4ww as used it at home prior. OT- Balance Assessment Sitting Balance and Reactions Static Sitting Balance Ability Normal Dynamic Sitting Balance Ability Good Standing Balance and Reactions Static Standing Balance Ability Good M8 OT- IP Objective Assessments Start: 02/20/21 16:20 Freq: Status: Active Protocol: Document 02/20/21 16:20 [facility] (Rec: 02/20/21 16:40 [facility] [id number]) OT Gross Range of Motion Upper Extremity Range of Motion Assessment Within Functional Limits OT Strength Upper Extremity Strength Assessment Within Functional Limits OT-Muscle Tone Assessment Muscle Tone WNL Yes M9 OT- IP Assessment and Plan Start: 02/20/21 16:20 Freq: Status: Active Protocol: Document 02/21/21 13:01 [facility] (Rec: 02/21/21 13:17 [facility] [id number]) OT Summary Assessment and Plan Potential Rehabilitation Potential Good Analytic Complexity at Evaluation Low Summary OT Impairments Functional Cognition, Functional Mobility,Dressing, Bathing,Activity Tolerance Progress Towards Goals Progressing Toward Goals Assessment Summary Pt main barrier is that she is impulsive and forgetting to incorporate her back precautions. Able to rely information for safety awareness to her son in law- [place] who was there to pick her up. Discharge Recommendations OT Discharge Recommendations Home with Assistance Home Equipment Needs sas programmer remote given Transportation Needs at Discharge Private Vehicle
--- NOTE | 2021-02-21 13:49 | PC.NURSE ---
Discharge: Pt feels ready to d/c home. Seen by PT/OT and given instructions. Seen by PA and received d/c instructions. Dressing changed to lower back and coversite applied. Bilat incisionsare stapled, wound edges approx, does have bruising but no drainage seen. Pt is voiding w/out problems. Tolerated diet w/out problems. Po pain meds effective. Reviewed d/c packet and questions answered. Pt dtr here for excelsior picker. OT spoke with family about pt's lami precautions since she is a little impulsive. Pt voiced no concerns at d/c.
== END 2021-02-21 12:45 | disposition home or self-care (01) ==
LOC: OR 14:32 → AC 14:32
PROVIDERS: Admitting Provider Orthopaedic Surgery Orthopaedic Surgery of the Spine; PCP Family Medicine; Referring Provider Family Medicine; Visit Provider Orthopaedic Surgery Orthopaedic Surgery of the Spine
PROC: (CPT 22633; principal; 2021-02-19 13:45)
DX: M48.07 Spinal stenosis, lumbosacral region (principal); M51.17 Intervertebral disc disorders with radiculopathy, lumbosacral region; M47.27 Other spondylosis with radiculopathy, lumbosacral region; Z98.890 Other specified postprocedural states; I10 Essential (primary) hypertension; E03.9 Hypothyroidism, unspecified
CPT/HCPCS: 22633; 63047; 22853; 22840; 20939; 72100; 76000; 97110; 97116; 97161; 97165; 97530; 97535; C1776; G0378; C9290; J0690; J0780; J1170; J2250; J2405; J2765; J3010